=== PATIENT | female | born 1960 | race Asian ===

== ENCOUNTER 2018-08-25 08:44 | Day surgery (SDC) | payer OTHER | END 2018-08-25 12:17 | disposition home or self-care (01) | LOC: OR 08:44 | PROC: 3E0T3BZ Introduction of Anesthetic Agent into Peripheral Nerves and Plexi, Percutaneous Approach (ICD-10-PCS; principal; 2018-08-25) | PROC: BR16YZZ Fluoroscopy of Lumbar Facet Joint(s) using Other Contrast (ICD-10-PCS; 2018-08-25) | DX: M47.896 Other spondylosis, lumbar region (principal) | CPT/HCPCS: J1100; J2001 ==

== ENCOUNTER 2018-10-20 07:38 | Day surgery (SDC) | payer OTHER | END 2018-10-20 10:05 | disposition home or self-care (01) | LOC: OR 07:38 | PROC: 3E0T3TZ Introduction of Destructive Agent into Peripheral Nerves and Plexi, Percutaneous Approach (ICD-10-PCS; principal; 2018-10-20) | PROC: BR16YZZ Fluoroscopy of Lumbar Facet Joint(s) using Other Contrast (ICD-10-PCS; 2018-10-20) | DX: M47.817 Spondylosis without myelopathy or radiculopathy, lumbosacral region (principal) | CPT/HCPCS: J2001 ==

== ENCOUNTER 2018-11-03 07:15 | Day surgery (SDC) | payer OTHER ==
[~2018-11-03] VITALS: Ht 167.6 cm; Wt 84.4 kg
== END 2018-11-03 09:30 | disposition home or self-care (01) ==
LOC: OR 07:15
PROC: 3E0T3TZ Introduction of Destructive Agent into Peripheral Nerves and Plexi, Percutaneous Approach (ICD-10-PCS; principal; 2018-11-03)
PROC: BR16YZZ Fluoroscopy of Lumbar Facet Joint(s) using Other Contrast (ICD-10-PCS; 2018-11-03)
DX: M47.817 Spondylosis without myelopathy or radiculopathy, lumbosacral region (principal)
CPT/HCPCS: J2001